=== PATIENT | male | born 1965 | race Two or more races ===

== ENCOUNTER 2025-10-24 05:53 | Emergency (ER) | payer OTHER ==
[~2025-10-24] VITALS: Ht 182.9 cm; Wt 77.1 kg
[2025-10-24] MEDS ORDERED: AMLODIPINE-OLM1 EAC2 (06:14)
[2025-10-24] MEDS ORDERED: COZAAR100 MG PO (06:14)
[2025-10-24] MEDS ORDERED: SIMVASTATIN20 MG PO (06:14)
[2025-10-24] MEDS ORDERED: STIOLTO RESPIMAT4 G2 IH (06:15)
[2025-10-24] MEDS ORDERED: ANORO ELLIPTA1 EACH IH (06:15)
[2025-10-24] MEDS ORDERED: IPRATROPIUM BROMIDE 0.5 MG/2.5 ML AMPUL.NEB IH ONE (07:15)
[2025-10-24] MEDS ORDERED: GUAIFENESIN 200 MG/10 ML BLIST.PACK PO ONE (07:15)
[2025-10-24] MEDS ORDERED: METHYLPREDNISOLONE SOD SUCC 40 MG VIAL IV ONE (07:15)
[2025-10-24] MEDS ORDERED: CETIRIZINE HCL 10 MG TABLET PO ONE (07:15)
[2025-10-24 08:32] LABS: BASO % 0.3 % (0.1-1.2); EOS # 0.10 (0.04-0.54); EOS % 1.1 % (0.7-7.0); LYMPH # 0.95 (1.18-3.74); LYMPH % 10.6 % (19.3-53.1); MEAN PLATELET VOLUME 10.40 fl (9.4-12.4); MONO # 0.69 (0.24-0.82); MONO % 7.7 % (4.7-12.5); NEUT # 7.13 (1.56-6.13); NEUT % 79.9 % (34.0-71.1); RED CELL DISTRIBUTION WIDTH 12.5 % (11.6-14.4)
[2025-10-24 08:34] LABS: ERYTHROCYTE SEDIMENTATION RATE 15 mm/hr (0-20)
[2025-10-24 08:55] LABS: COVID-19 AG NEGATIVE (NEGATIVE)
[2025-10-24] MEDS ORDERED: FLONASE16 GM IH (11:47)
[2025-10-24] MEDS ORDERED: IPRAT-ALBUT 0.5-3 ML IH (11:47)
[2025-10-24] MEDS ORDERED: ALLER-TEC10 MG PO (11:47)
[2025-10-24 13:53] VITALS: BP 120/80; O2SAT 100
== END 2025-10-24 13:58 | disposition home or self-care (01) ==
LOC: ER 05:54
PROVIDERS: Student in an Organized Health Care Education/Training Program
DX: J20.8 Acute bronchitis due to other specified organisms (principal); J32.8 Other chronic sinusitis; I10 Essential (primary) hypertension; Z20.822 Contact with and (suspected) exposure to COVID-19; Z88.0 Allergy status to penicillin; Z91.013 Allergy to seafood